=== PATIENT | male | born 1980 | race American Indian/Alaskan Native ===

== ENCOUNTER 2020-09-04 07:54 | Emergency (ER) | payer SELFPAY ==
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
[2020-09-04] MEDS ORDERED: traMADol 50 MG TAB PO ONE (13:42)
[2020-09-04] MEDS ORDERED: NEOMY 3.5 MG/BACIT 400 UNITS/POLY B 5000 UNITS/GM OINT PACKET TP ONE (13:53)
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
[2020-09-04 14:28] VITALS: BP 166/113
== END 2020-09-04 14:36 | disposition home or self-care (01) ==
LOC: ED 07:54
DX: M25.512 Pain in left shoulder (principal); S46.912A Strain of unspecified muscle, fascia and tendon at shoulder and upper arm level, left arm, initial encounter; S80.02XA Contusion of left knee, initial encounter; S00.81XA Abrasion of other part of head, initial encounter; Z79.1 Long term (current) use of non-steroidal anti-inflammatories (NSAID); W50.0XXA Accidental hit or strike by another person, initial encounter; Y93.89 Activity, other specified; Y92.89 Other specified places as the place of occurrence of the external cause; Y99.8 Other external cause status
CPT/HCPCS: 73030; 73562; 99283; A6250